=== PATIENT | male | born 1935 | race Caucasian/White ===

== ENCOUNTER 2016-12-03 09:03 | Day surgery (SDC) | payer MEDICARE ==
[~2016-12-03] VITALS: Ht 170.2 cm; Wt 78.9 kg
[2016-12-03 10:28] LABS: HEMOGLOBIN 12.8 g/dL (14.1-18.0)
[2016-12-03 10:29] LABS: LYMPH # 1.3 K/mm3 (0.7-4.5); LYMPH % 20.4 % (10-50)
[2016-12-03 10:33] LABS: BUN 29 mg/dL (7-18); GFR (ESTIMATED) 53 ML/MIN (>60)
--- NOTE | 2016-12-03 12:32 | Anesthesia Record ---
Anesthesia Record Part I Total IV fluids: 1000 EBL (ml): 25 Urine Output: 0 B/P: 113/62 % SaO2: 99 Pulse: 70 Resps: 16 Temp: 97.6 Patient is: Awake, Stable Stable to PACU at: 1225 at 1232
--- NOTE | 2016-12-03 12:32 | Anesthesia Record ---
Anesthesia Record Part II Discharge time: 1255 Destination: Same day surgery PACU nurse assessment review? Yes Patient is: Awake, Stable Anesthesia complications? No at 1238
--- NOTE | 2016-12-03 13:05 | RADIOLOGY REPORT PS360 ---
CHEST-PORTABLE HISTORY: VERIFY PACEMAKER PLACEMENT ORDERING PHYSICIAN: Rosalino Mari MD PATIENT AGE: 81 years COMPARISON: None available FINDINGS: Tripolar cardiac pacemaker has been placed by the left subclavian approach with the leads in satisfactory position there is no evidence of pneumothorax. There has been prior median sternotomy. There is fracture of several median sternotomy wires. Heart size is upper limits of normal. No evidence of CHF. The lungs are clear. IMPRESSION: Status post pacemaker insertion as described above without evidence of immediate complication
[2016-12-03 14:58] VITALS: BP 109/55
--- NOTE | 2016-12-03 15:16 | RADIOLOGY REPORT PS360 ---
PACEMAKER/DEFIBRILLATOR CLINICAL INDICATION: Biventricular pacemaker insertion BI-V ORDERING PHYSICIAN: Rosalino Mari MD PATIENT AGE: 81 years COMPARISON: None FINDINGS: Images are submitted with the C-arm during placement of biventricular pacemaker. Multiple images submitted with contrast injected into the coronary sinus to confirm adequate pacemaker placement. Satisfactory RV lead and right atrial lead IMPRESSION: Status post biventricular pacemaker placement as described above
--- NOTE | 2016-12-13 12:07 | Operative Note ---
AICD Date of procedure: 12/03/16 Time: 0110 Preoperative Diagnosis: Systolic congestive heart failure ejection fraction less than 35% Ischemic cardiomyopathy QRS greater than 120 ms Indication for test: See preoperative diagnosis [place] heart Association class III congestive heart failure Ejection fraction less than 35% Complications: None EBL less than 10 ml Technique: 1% Lidocaine with epinephrine used to anesthetize the left anterior aspect of the chest.Scalpel was used to make the initial cutaneous incision while electrocautery was used to dissect down into the fascia. The fascia was lifted off the pectoralis muscle and digitally manipulated creating a pocket for the pacemaker. The patient was then placed in Trendelenburg position and the subclavian vein was accessed via the Selinger technique. A 7 Brazilian sheath was placed under fluoroscopic guidance into the subclavian vein. Following this, an additional wire was placed into the sheath. Now, with two wires inside the 7 Brazilian sheath, this sheath was removed, maintaining the two wires in the subclavian vein. The sheath and dilator was then placed over one of the wires while keeping the other wire in place within the subclavian vein. The dilator was removed from the sheath. Using fluoroscopic guidance, the ventricular lead was placed into the right ventricular apex, screwed and secured into place. Electronic interrogation proved acceptable thresholds and voltage within the lead. Using 3-0 silk, the ventricular lead was then secured into place. Lead was secured to the fascia using the 3-0 silk. Following this, the sheath was pealed away. An additional 7 Brazilian fresh sheath and dilator was placed over the existing wire. Using fluoroscopic guidance, the atrial lead was then placed into the right atrial appendage and screwed and secured in place. Electrical interrogation demonstrated acceptable thresholds and voltage numbers. The atrial lead was then secured into place using 3-0 silk and then the lead was finally secured to the fascia. With both the atria and ventricular leads in place with acceptable thresholds and sensitivity, the atrial and ventricular leads were placed into the pacemaker generator. Pacemaker generator was then secured to the fascia using 3-0 silk. 1 gram of Ancef was used to flush the pocket. Following the pacemaker being secured to the fascia and in place, Monocryl was used to close the subcutaneous layers while sam were used to close the cutaneous layer. A pressure dressing was placed and the patient was transferred to the postop holding area in stable condition for postoperative care. Impression: Pacemaker Procedure performed: Existing pacemaker removed Pocket revision for biventricular pacemaker generator with cardiac resynchronization/defibrillator therapy Existing atrial and RV leads left intact Placement of left ventricular pacing sensing coil into the coronary sinus Permanent cardiac resynchronization therapy with a ICD implantation/ biventricular pacemaker Interrogation: Interrogation: P-wave measures 2.8 mV with lead impedance of 480. P-wave threshold 0.625 R wave greater than 8.0 mV R wave impedance 550 R wave threshold 0.625 Pulse width 0.5 Mode DDDR Pacemaker model number [id number] Pacemaker serial number [id number] Atrial lead monitor number Model 2088 Tc/52 serial number [id number] Ventricular lead model number RV lead [id number] LV lead 1458Q/86 Ventricular lead serial number Right ventricular serial number [id number] Left ventricular serial number [id number] Therapies: Mode [id number] Max 110 170 ATP X 3, 36,40 200 ATP w/c 36,40 Positive D/S to 2.0 V at 0.5 ms D1 Serial number: See above Plan: Plan: Post-op wound care Control of atrial fibrillation with bisoprolol Plans to maximize systolic congestive heart for medications including diuretics and afterload reducing medications Addition of the digoxin On anticoagulation for 5 days after generator placement
--- NOTE | 2016-12-13 12:07 | Operative Note ---
AICD Date of procedure: 12/03/16 Time: 0110 Preoperative Diagnosis: Systolic congestive heart failure ejection fraction less than 35% Ischemic cardiomyopathy QRS greater than 120 ms Indication for test: See preoperative diagnosis [place] heart Association class III congestive heart failure Ejection fraction less than 35% Complications: None EBL less than 10 ml Technique: 1% Lidocaine with epinephrine used to anesthetize the left anterior aspect of the chest.Scalpel was used to make the initial cutaneous incision while electrocautery was used to dissect down into the fascia. The fascia was lifted off the pectoralis muscle and digitally manipulated creating a pocket for the pacemaker. The patient was then placed in Trendelenburg position and the subclavian vein was accessed via the Selinger technique. A 7 [place]yanese sheath was placed under fluoroscopic guidance into the subclavian vein. Following this, an additional wire was placed into the sheath. Now, with two wires inside the 7 [place]yanese sheath, this sheath was removed, maintaining the two wires in the subclavian vein. The sheath and dilator was then placed over one of the wires while keeping the other wire in place within the subclavian vein. The dilator was removed from the sheath. Using fluoroscopic guidance, the ventricular lead was placed into the right ventricular apex, screwed and secured into place. Electronic interrogation proved acceptable thresholds and voltage within the lead. Using 3-0 silk, the ventricular lead was then secured into place. Lead was secured to the fascia using the 3-0 silk. Following this, the sheath was pealed away. An additional 7 [place]yanese fresh sheath and dilator was placed over the existing wire. Using fluoroscopic guidance, the atrial lead was then placed into the right atrial appendage and screwed and secured in place. Electrical interrogation demonstrated acceptable thresholds and voltage numbers. The atrial lead was then secured into place using 3-0 silk and then the lead was finally secured to the fascia. With both the atria and ventricular leads in place with acceptable thresholds and sensitivity, the atrial and ventricular leads were placed into the pacemaker generator. Pacemaker generator was then secured to the fascia using 3-0 silk. 1 gram of Ancef was used to flush the pocket. Following the pacemaker being secured to the fascia and in place, Monocryl was used to close the subcutaneous layers while sam were used to close the cutaneous layer. A pressure dressing was placed and the patient was transferred to the postop holding area in stable condition for postoperative care. Impression: Pacemaker Procedure performed: Existing pacemaker removed Pocket revision for biventricular pacemaker generator with cardiac resynchronization/defibrillator therapy Existing atrial and RV leads left intact Placement of left ventricular pacing sensing coil into the coronary sinus Permanent cardiac resynchronization therapy with a ICD implantation/ biventricular pacemaker Interrogation: Interrogation: P-wave measures 2.8 mV with lead impedance of 480. P-wave threshold 0.625 R wave greater than 8.0 mV R wave impedance 550 R wave threshold 0.625 Pulse width 0.5 Mode DDDR Pacemaker model number [id number] Pacemaker serial number [id number] Atrial lead monitor number Model 2088 Tc/52 serial number [id number] Ventricular lead model number RV lead [id number] LV lead 1458Q/86 Ventricular lead serial number Right ventricular serial number [id number] Left ventricular serial number [id number] Therapies: Mode [id number] Max 110 170 ATP X 3, 36,40 200 ATP w/c 36,40 Positive D/S to 2.0 V at 0.5 ms D1 Serial number: See above Plan: Plan: Post-op wound care Control of atrial fibrillation with bisoprolol Plans to maximize systolic congestive heart for medications including diuretics and afterload reducing medications Addition of the digoxin On anticoagulation for 5 days after generator placement
== END 2016-12-03 14:56 | disposition home or self-care (01) ==
LOC: SDC 09:03
PROVIDERS: Internal Medicine
PROC: 0JH608Z Insertion of Defibrillator Generator into Chest Subcutaneous Tissue and Fascia, Open Approach (ICD-10-PCS; 2016-12-03)
PROC: 02HK3KZ Insertion of Defibrillator Lead into Right Ventricle, Percutaneous Approach (ICD-10-PCS; 2016-12-03)
PROC: 02H63KZ Insertion of Defibrillator Lead into Right Atrium, Percutaneous Approach (ICD-10-PCS; 2016-12-03)
PROC: 4B02XTZ Measurement of Cardiac Defibrillator, External Approach (ICD-10-PCS; 2016-12-03)
PROC: 0JH607Z Insertion of Cardiac Resynchronization Pacemaker Pulse Generator into Chest Subcutaneous Tissue and Fascia, Open Approach (ICD-10-PCS; 2016-12-03)
PROC: 0JPT0PZ Removal of Cardiac Rhythm Related Device from Trunk Subcutaneous Tissue and Fascia, Open Approach (ICD-10-PCS; 2016-12-03)
PROC: 02H43JZ Insertion of Pacemaker Lead into Coronary Vein, Percutaneous Approach (ICD-10-PCS; principal; 2016-12-03 10:30)
DX: I50.22 Chronic systolic (congestive) heart failure (principal); I45.10 Unspecified right bundle-branch block; Z45.02 Encounter for adjustment and management of automatic implantable cardiac defibrillator; I25.5 Ischemic cardiomyopathy; I48.1 Persistent atrial fibrillation; I44.0 Atrioventricular block, first degree
CPT/HCPCS: C1769; C1882; C1894; C1900; J2405